=== PATIENT | female | born 1965 | race Caucasian/White ===

== ENCOUNTER 2017-12-19 12:41 | Emergency (ER) | payer MEDICAID ==
[~2017-12-19] VITALS: Ht 167.6 cm; Wt 99.8 kg
[2017-12-19 12:50] VITALS: BP 130/73
--- NOTE | 2017-12-19 12:59 | NUR ---
URINE CUP HANDED TO PT
--- NOTE | 2017-12-19 13:01 | NUR ---
52Y/F BIB C/O INTERMITTENT LEFT BURNING FLANK PAIN RADIATING LEFT LOWER ABDOMEN X YESTERDAY; DENIES DYSURIA; ADDS SHE LIFTED A HEAVY BOX AT WORK 2 DAYS; AGO; NO INJURIES; PT IS AAOX4; BED DOWN; BEDRAIL UP X 1; ER MD AWARE AND NOTIFIED OF PT STATUS. HX---DENIES RX---NONE
--- NOTE | 2017-12-19 13:09 | NUR ---
Patient being evaluated by physician at bedside.
[2017-12-19] MEDS ORDERED: ONDANSETRON 4 MG ODT PO ONE (13:10)
[2017-12-19] MEDS ORDERED: KETOROLAC 30 MG/ML VIAL IM ONE (13:10)
[2017-12-19] MEDS ORDERED: fentaNYL 0.05 MG/ML VIAL IM ONE (13:45)
--- NOTE | 2017-12-19 14:00 | NUR ---
PT TAKEN TO RAD
[2017-12-19] MEDS ORDERED: methylPREDNISolone SS 125 MG/2 ML VIAL IM ONE (15:25)
[2017-12-19 15:57] VITALS: BP 128/71
--- NOTE | 2017-12-19 15:57 | NUR ---
Patient discharged with v/s stable. Written and verbal after care instructions given and explained. Patient alert, oriented and verbalized understanding of instructions. Ambulatory with steady gait. All questions addressed prior to discharge. ID band removed. Patient advised to follow up with PMD. Rx of motrin, zofran, and robaxin given. Patient educated on indication of medication including possible reaction and side effects. Opportunity to ask questions provided and answered.
== END 2017-12-19 15:57 | disposition home or self-care (01) ==
LOC: MED 12:41
DX: S29.012A Strain of muscle and tendon of back wall of thorax, initial encounter (principal); Z88.5 Allergy status to narcotic agent; X50.0XXA Overexertion from strenuous movement or load, initial encounter; Y93.89 Activity, other specified; Y92.89 Other specified places as the place of occurrence of the external cause; Y99.8 Other external cause status
CPT/HCPCS: 74022; 81002; 81025; 96372; 99284; J1885; J2930; J3010; S0119

== ENCOUNTER 2018-02-12 15:30 | Emergency (ER) | payer MEDICAID ==
[~2018-02-12] VITALS: Ht 165.1 cm; Wt 103.0 kg
[2018-02-12 15:50] VITALS: BP 117/62
[2018-02-12 18:23] LABS: BASOPHILS % (AUTO) 0.3 % (0.0-2.0); EOSINOPHILS # (AUTO) 0.3 K/uL (0-0.4); EOSINOPHILS % (AUTO) 3.7 % (0.0-4.0); HEMATOCRIT 38.3 % (36-48); HEMOGLOBIN 12.7 g/dL (12.0-16.0); LYMPHOCYTES # (AUTO) 2.6 K/uL (2.5-16.5); LYMPHOCYTES % (AUTO) 30.1 % (20.5-51.1); MEAN CORPUSCULAR HEMOGLOBIN 30 pg (27-31); MEAN CORPUSCULAR HGB CONC 33 g/dL (33-37); MONOCYTES # (AUTO) 0.7 K/uL (0.8-1.0); MONOCYTES % (AUTO) 7.8 % (1.7-9.3); NEUTROPHILS % (AUTO) 58.1 % (42.2-75.2); PLATELET COUNT (AUTO) 282 K/uL (140-450); RED CELL DISTRIBUTION WIDTH 14.4 % (11.6-13.7); WHITE BLOOD COUNT (AUTO) 8.6 K/uL (4.8-10.8)
[2018-02-12 18:37] LABS: CREATININE 0.9 mg/dL (0.6-1.3)
[2018-02-12 18:43] LABS: ALBUMIN 3.4 g/dL (3.4-5.0); TOTAL BILIRUBIN 0.2 mg/dL (0.0-1.0)
[2018-02-12 20:10] LABS: APPEARANCE,URINE CLEAR (CLEAR); BLOOD, URINE NEGATIVE (NEGATIVE); COLOR,URINE YELLOW (YELLOW); UGLUCOSE NEGATIVE (NEGATIVE)
[2018-02-12 20:11] LABS: BILIRUBIN,URINE NEGATIVE (NEGATIVE); LEUKOCYTE ESTERASE ,URINE NEGATIVE (NEGATIVE); NITRITE, URINE NEGATIVE (NEGATIVE)
[2018-02-12] MEDS ORDERED: ONDANSETRON 4 MG/2 ML VIAL IVP ONE ×2 (20:20→22:55)
[2018-02-12] MEDS ORDERED: KETOROLAC 30 MG/ML VIAL IVP ONE (20:20)
[2018-02-12] MEDS ORDERED: NACL 0.9% 1,000 ML IV SCH (20:20)
[2018-02-12] MEDS ORDERED: ACETAMINOPHEN EXTRA STRENGTH 500 MG TAB PO ONE (22:55)
[2018-02-12] MEDS ORDERED: ACETAMINOPHEN EXTRA STRENGTH 500 MG TAB ONE (23:01)
[2018-02-12] MEDS ORDERED: ONDANSETRON 4 MG/2 ML VIAL ONE (23:02)
[2018-02-13 00:15] VITALS: BP 118/79
== END 2018-02-13 00:15 | disposition home or self-care (01) ==
LOC: MED 15:30
DX: K52.9 Noninfective gastroenteritis and colitis, unspecified (principal); Z88.5 Allergy status to narcotic agent
CPT/HCPCS: 36415; 74176; 80053; 81003; 81025; 83690; 85025; 96361; 96374; 96375; 96376; 99285; J1885; J2405; J7030